=== PATIENT | male | born 1965 | race Two or more races ===

== ENCOUNTER → 2016-12-31 | Outpatient (CLI) | payer OTHER ==
--- NOTE | 2017-01-01 05:15 | HKNOTE ---
DATE OF SERVICE: 12/31/2016 REFERRING PHYSICIAN: Dr. Luis Calhoun MAIN COMPLAINT: Pain, locking, swelling and instability of the right knee. HISTORY OF MAIN COMPLAINT: The patient is a 51-year-old male who states he had no problems with his right knee until about 4 weeks ago when he was gardening. He accidentally stuck his foot into a ho le in the ground as he was walking along. He fell down to the ground twisting his right knee. He w as able to get up and walk, but his knee was very painful. Then his pain settled down after a few d ays and a week or so later, the pain returned in addition to other symptoms, The pain has become pr ogressively worse. He was seen at the [facility] Emergency Room where he was diagnosed as having a fracture of the patella ( ). He was referred to his primary care physician, Dr. Luis lombardi, who referred him to me for further evaluation of his orthopedic problem. PRESENT COMPLAINTS: The pain in the right knee is aggravated by walking, weightbearing and stair cl imbing. He does get rest pain and night pain. He is taking [place] for pain. It does not help very much. He has a long leg knee immobilizer which was given to him. He does not believe that it helps very much. He is not using a walking aid, but he limps all the time. His knee swells, feels unsta ble and it locked on 2 occasions, each time for about 10 minutes. He is limping most of the time. He does not have a shoe lift. He cannot clip his toenails or tie h is shoelaces on the right side. PAST ORTHOPEDIC HISTORY: Previous orthopedic operation none. PRIOR CORTISONE INTAKE: None. ALCOHOL INTAKE: None. OTHER JOINT PROBLEMS: None. BLOOD TEST FOR ARTHRITIS: None. PRIOR INJURIES TO HIPS OR KNEES: None. 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 PAST MEDICAL HISTORY: 1. Hepatitis C. 2. Diabetes. 3. Hypertension. 4. History of TIAs. 5. Asthma. 6. Sleep apnea. 7. Benign prostatic hypertrophy. DRUG ALLERGIES: NONE LISTED. MEDICATIONS 1. Metformin hydrochloride 1000 mg twice a day. 2. Vitamin D3 2000 mg once a day. 3. Hydrochlorothiazide once a day. 4. Omeprazole 40 mg once a day. 5. Fish oil 1000 mg twice a day. 6. Lisinopril 40 mg once a day. 7. KwikPen Humalog once a day. 8. Lantus 3 mL once a day. FAMILY HISTORY: Noncontributory. SYSTEMS REVIEW: HEAD AND NECK: There were any spells, has a history of having a mild stroke. HEART AND LUNGS: Hypertension, stomach intestines, heartburn, diabetes urinary tract, GI tract, ex cess night urination. MUSCLE JOINTS AND NERVES: Gait disturbance and the result of his knee pain. HABITS: The patient does not smoke or drink alcoholic beverages. PHYSICAL EXAMINATION: GENERAL: The patient is an overweight 51-year-old male. He comes in with his 2 sons. VITAL SIGNS: Height 5 feet 6 inches, weight 287 pounds. Blood pressure 115/70, temperature 97.9. EXTREMITIES: The patient has a long leg knee immobilizer on the right leg which is removed for exam ination. He does not have the walking aid with him today. The patient's gait is markedly antalgic. He has difficulty getting on the examination couch. IMAGING: The patient's examination of the right hip with full range of motion without pain. Examin ation of the left hip with full range of motion without pain. No tenderness anywhere around either hip. RIGHT KNEE: Extension lacks 5 degrees (severe pain when the patient jumps off the couch). Flexion 85 degrees. Back is severe pain on attempting any further passive flexion. The medial and lateral collateral ligaments and cruciate ligaments are intact. Carolyne test is negative. There is no effusi on, tenderness, scarring, crepitus, or cysts. The patella tracks normally. There is no tenderness on the articular surface of the patella or in the patellar groove. The Q angle is normal. 2+ effusion . IMAGING: Plain x-rays of the right knee obtained on 11/26/2016 were reviewed. These do not show an y fractures. There are mild degenerative changes at the tibiofemoral joint and the patellofemoral j oint. FOOTNOTE: The radiologist, Dr. Adal Haywood, read this as showing "suggested that there might be a patellar fracture. I see absolutely no patellar fractures on these x-rays. The actual pictures were reviewed. These show severe degenerative osteoarthritis of the patellofemo ral joint. Slight narrowing medial and lateral joint spaces. DIAGNOSES: 1. Probable torn medial meniscus of the right knee. 2. Hepatitis C. 3. Diabetes. 4. Hypertension. 5. History of TIAs. 6. Asthma. 7. Sleep apnea. 8. Benign prostatic hypertrophy. MANAGEMENT: The patient advised that he will need to have an MRI scan of the knee to confirm the di agnosis, although the symptoms that we have and the clinical findings are pretty much confirma tory, nonetheless for medical reasons, we do need to get an MRI scan of the knee. Once it has been obtained, it will be reviewed by me and the patient will be called with the results and advised of w here we go from here, although we did spend considerable time discussing knee problems MRIs. Once w e have an MRI scan, I will call him with the results and will determine where we go from here. Alth ough we did spend considerable time today discussing arthroscopic surgery of the knee. Dictated By: COBY ARELLANO/WILY Conf#: [id number] DID#: [id number] CC: Luis Calhoun MD;*EndCC*
== END | disposition home or self-care (01) ==
LOC: HKI 14:44
DX: M25.561 Pain in right knee (principal); E11.9 Type 2 diabetes mellitus without complications; I10 Essential (primary) hypertension; J45.909 Unspecified asthma, uncomplicated; B19.20 Unspecified viral hepatitis C without hepatic coma
CPT/HCPCS: G0463

== ENCOUNTER → 2017-02-11 | Outpatient (CLI) | payer OTHER ==
[~2017-02-11] MED LIST: BLOO-53 MC; CHOL100062 PO; GEMF600T PO; GLUCOSE; HYD25 PO; INSU100C SQ; LANC-831 MC; LANT3I SC; LISI40TA9 PO; METF1000 PO; NOVO7030 SC; OMEG300C3 PO; OMEP40CA6 PO; test
--- NOTE | 2017-02-11 21:50 | HKNOTE ---
DATE OF SERVICE: 02/11/2017 The patient comes for preoperative evaluation. He is scheduled to have operative arthroscopy on his right knee on 02/12/2017. He has been cleared for surgery by Dr. Armond Santoro. The patient dawson s diabetes. Note that he very recently weighed 400 pounds. He has been able to diet himself down t o 273 pounds, which is remarkable. The patient plays singles and doubles tennis. We again went over the MRI and ____ plan. The patien t is advised that he has some arthritis in the knee and he will not be relieved of all pain in the k nee. Postoperative course and recovery were discussed with him. Dictated By: COBY ARELLANO/WILY Conf#: [id number] DID#: [id number]
== END | disposition home or self-care (01) ==
LOC: HKI 13:28
DX: Z01.818 Encounter for other preprocedural examination (principal); M25.561 Pain in right knee
CPT/HCPCS: G0463

== ENCOUNTER 2017-02-12 05:16 | Observation (INO) | payer OTHER ==
[2017-02-12] VITALS (43 sets, daily range): BP systolic 112–157; BP diastolic 56–95; PULSE 72–112; RESP 10–25; Ht 167.6 cm; Wt 123.8 kg
[~2017-02-12] VITALS: Ht 167.6 cm; Wt 123.8 kg
[2017-02-12] MEDS ORDERED: ACETAMINOPHEN 1000MG/100ML IV 100 ML IVPB ONE (06:00)
[2017-02-12] MEDS ORDERED: LACTATED RINGER'S 1,000 ML IV* SCH (06:00)
[2017-02-12] MEDS ORDERED: DEXAMETHASONE 4 MG/ML 1 ML INJ IV ONE (06:00)
[2017-02-12] MEDS ORDERED: oxyCODONE (CR) 10 MG TAB [oxyCONTIN] PO ONE (06:00)
[2017-02-12] MEDS ORDERED: VANCOMYCIN 1 GM (PMX) 250 ML IVPB ONE (06:00)
[2017-02-12] MEDS ORDERED: CELECOXIB 200 MG CAP PO ONE (06:00)
[2017-02-12] MEDS ORDERED: LANSOPRAZOLE 30 MG CAP PO ONE (06:00)
[2017-02-12] MEDS ORDERED: ONDANSETRON 4 MG INJ IV ONE (06:00)
[2017-02-12] MEDS ORDERED: ROCURONIUM 50 MG INJ ONE (06:29)
[2017-02-12] MEDS ORDERED: DEXAMETHASONE 4 MG/ML 1 ML INJ ONE (06:29)
[2017-02-12] MEDS ORDERED: NEOSTIGMINE 3 MG/3 ML SYRINGE ONE (06:29)
[2017-02-12] MEDS ORDERED: GLYCOPYRROLATE 0.4 MG INJ ONE (06:29)
[2017-02-12] MEDS ORDERED: PROPOFOL 20 ML ONE (06:29)
[2017-02-12] MEDS ORDERED: ONDANSETRON 4 MG INJ ONE (06:29)
[2017-02-12] MEDS ORDERED: LIDOCAINE 2% (SDV) 5 ML INJ ONE (06:29)
[2017-02-12] MEDS ORDERED: MIDAZOLAM 1 MG/ML 2 ML INJ ONE (06:29)
[2017-02-12] MEDS ORDERED: FENTAnyl 50 MCG/ML VIAL ONE (06:29)
[2017-02-12] MEDS ORDERED: MIDAZOLAM 1 MG/ML 2 ML INJ IV PRN ×2 (06:30)
[2017-02-12] MEDS ORDERED: OXYCODONE/ACETAMINOPHEN (5/325) TAB PO PRN ×4 (06:30)
[2017-02-12] MEDS ORDERED: ATROPINE 1 MG/10 ML SYRINGE IV PRN ×2 (06:30)
[2017-02-12] MEDS ORDERED: MEPERIDINE 25 MG INJ IV PRN ×2 (06:30)
[2017-02-12] MEDS ORDERED: DIPHENHYDRAMINE 50 MG INJ IV PRN ×2 (06:30)
[2017-02-12] MEDS ORDERED: morphine (1 MG/ML) 10ML SYRINGE IV PRN ×6 (06:30)
[2017-02-12] MEDS ORDERED: HYDROmorphONE (0.2 MG/ML) 10ML SYG IV PRN ×6 (06:30)
[2017-02-12] MEDS ORDERED: SUCCINYLCHOLINE CHLORIDE 100 MG/5 ML SYG IV ONE (06:30)
[2017-02-12] MEDS ORDERED: hydrALAzine 20 MG INJ IV PRN ×2 (06:30)
[2017-02-12] MEDS ORDERED: EPHEDrine SULFATE 50 MG/5 ML SYG IV PRN ×2 (06:30)
[2017-02-12] MEDS ORDERED: ONDANSETRON 4 MG INJ IV PRN ×3 (06:30→09:00)
[2017-02-12] MEDS ORDERED: LABETALOL HCL 20MG INJ IV PRN ×2 (06:30)
[2017-02-12] MEDS ORDERED: FENTAnyl 50 MCG/ML VIAL IV PRN ×4 (06:30)
[2017-02-12] MEDS ORDERED: ROPIVACAINE 0.5 % 30 ML VIAL ONE (06:54)
[2017-02-12] MEDS ORDERED: BUPIVACAINE 0.25%/EPI (SDV) 30 ML INJ ONE (06:54)
[2017-02-12] MEDS ORDERED: KETOROLAC 30 MG INJ ONE (06:55)
[2017-02-12] MEDS ORDERED: morphine SULFATE/PF (10 MG/10 ML) INJ ONE (06:55)
--- NOTE | 2017-02-12 07:20 | HPN ---
Date/Time of Note Date/Time of Note DATE: 02/12/17 TIME: 07:19 Interval H&P Admission Note Pt. seen H&P reviewed: No system changes JULIET AMOS PA-C Feb 12, 2017 07:20
[2017-02-12] MEDS ORDERED: LISI40TA9 PO ×2 (07:26→14:27)
[2017-02-12] MEDS ORDERED: METF1000 PO ×2 (07:26→14:27)
[2017-02-12] MEDS ORDERED: HYD25 PO ×2 (07:26→14:27)
[2017-02-12] MEDS ORDERED: GEMF600T PO ×2 (07:26→14:27)
[2017-02-12] MEDS ORDERED: LANT3I SC ×2 (07:26→14:27)
[2017-02-12] MEDS ORDERED: OMEG300C3 PO ×2 (07:26→14:27)
[2017-02-12] MEDS ORDERED: CHOL100062 PO ×2 (07:26→14:27)
[2017-02-12] MEDS ORDERED: NOVO7030 SC ×2 (07:26→14:27)
[2017-02-12] MEDS ORDERED: OMEP40CA6 PO ×2 (07:26→14:27)
--- NOTE | 2017-02-12 07:39 | PREOPHP ---
DATE OF ADMISSION: 02/12/2017 He has a metabolic syndrome, diabetes, hypertension, and morbid obesity. The patient will have an a rthroscopy of the right knee. The patient has an exam, awake, 274 pounds and BMI 47.54. Blood pres sure 150/90, temperature is 97.6, the pulse around 90, respirations 22. THE PATIENT HAD NO ALLERGY and he has a metabolic syndrome, diabetic and high blood pressure. PHYSICAL EXAMINATION: GENERAL: Reveals a very obese gentleman, awake, in no distress on the day of examination and he weighs about 274 pounds. Looks well nourished and very . HEENT: Head: headache, but the patient complained of headache and the examination of t he scalp, no lesion. Eyes: PERRL. Conjunctivae okay, normal. Sclerae are clear. The vision ____ _ and grossly normal. Ears: Ear canals are clear. Tympanic membranes are normal. Hearing is heather sly are normal. Nose: clear. Mucosa is pink, no lesion. Teeth grossly normal and some cavi ty. NECK: Supple, no mass. Thyroid gland not enlarged. Carotid bruits 2+, equal, symmetrical. HEART: No organic murmur heard on exam. EKG is normal. BREASTS: No mass, no discharge. LUNGS: Clear to auscultation and percussion bilaterally. ABDOMEN: Obese but soft. Some organomegaly, but mild. The liver, spleen palpable. GENITALIA: Grossly normal. He has no circumcision. Testicles are . Prostate is grossl y normal. RECTAL: Normal, no hemorrhoid, normal bilaterally. EXTREMITIES: Show some severe osteoarthritis and go for right knee arthroscopy for severe ost eoarthritis. LYMPHATIC: Lymph nodes are not enlarged. BACK: He has some low back pain. SKIN: Tattoo on the upper extremities, but is clear, no gross skin lesion. NEUROLOGIC: Findings normal. The patient is alert. No gross sensory or motor deficit. REVIEW OF SYSTEMS: HEENT: Normocephalic. CHEST: Lungs clear. HEART: . There is no murmur. ABDOMEN: , but no mass . EXTREMITIES: He has a longstanding osteoarthritis of both legs. He has metabolic syndrome, including high blood pressure, morbid obesity, and diabetes mellitus. BLOOD TESTS: Platelets a little high, 405. He is on aspirin anticoagulant, mg. White count 8.0, RBC 4.89, hemoglobin normal about , hematocrit 38.9. On the normal. metaboli c syndrome metabolic panel, the random glucose 262, BUN 21, creatinine 1.6, GFR normal about 8 1. The liver, ALT/AST again normal, 22 and 21. Bilirubin total 0.6 and serum calcium 10.7, albumin 4.4, globulin total 3.6, normal. Urinalysis: The color linda, appearance clear, no protein, glucose trace , occult blood trace, bilirubin negative, urobilinogen , white count 0.5, R BC no, no , crystal not seen, bacteria very few. PT is 10 and PTT ; INR equal 1, normal. MEDICATIONS: 1. because of severe osteoarthritis of the knee, he is put on [place] 10/325 mg b.i.d. 2. Lantus injection 40 units every afternoon. 3. He takes also ibuprofen 800 mg p.o. q.6 hours. 4. He has some . 5. Some omeprazole 40 mg b.i.d. 6. Gabapentin 600 mg b.i.d. 7. He is on Humulin R 10 units subQ b.i.d. 8. Novolin N 20 units every morning. 9. He is on lisinopril 40 mg p.o. daily. 10. He is on the metformin 1000 mg b.i.d. 11. He is also on glimepiride 4 mg b.i.d. daily. 12. Hydrochlorothiazide 25 mg 1 tablet p.o. every morning. the patient is to undergo a right knee arthroscopy for his severe osteoarthritis of the right knee, and the patient has a metabolic syndrome, and the medication has been dictated and the physica l examination was done. Dr. Luis Calhoun MD dictating Pre-Operative History and Physical for Dr. Lonny Oden MD Dictated By: LONNY ARELLANO/WILY Conf#: [id number] DID#: [id number] CC: Luis Calhoun;*EndCC*
[2017-02-12] MEDS ORDERED: BUPIVACAINE 0.25%/EPI (SDV) 30 ML INJ INJ ONE (08:17)
[2017-02-12] MEDS ORDERED: morphine SULFATE/PF (10 MG/10 ML) INJ INJ ONE (08:18)
[2017-02-12] MEDS ORDERED: ROPIVACAINE 0.5 % 30 ML VIAL INJ ONE (08:18)
[2017-02-12] MEDS ORDERED: KETOROLAC 30 MG INJ INJ ONE (08:18)
[2017-02-12] MEDS ORDERED: HYDROCODONE/APAP (5/325) TAB PO PRN ×2 (09:00→18:30)
[2017-02-12] MEDS ORDERED: morphine 10 MG INJ IV PRN (09:00)
[2017-02-12] MEDS ORDERED: ACETAMINOPHEN 1000MG/100ML IV 100 ML IVPB SCH (09:00)
[2017-02-12] MEDS ORDERED: HYDROCODONE/APAP (10/325) TAB PO PRN (09:00)
[2017-02-12] MEDS ORDERED: INSULIN ASPART [NOVOLOG] 3 ML PEN SC ONE ×3 (10:00→14:30)
[2017-02-12] MEDS ORDERED: ALBUTEROL 0.5% (NEB) 2.5 MG/0.5 ML AMP ONE (10:56)
[2017-02-12] MEDS ORDERED: ALBUTEROL 0.083% (NEB) 2.5 MG/3 ML AMP HHN ONE (11:00)
--- NOTE | 2017-02-12 11:26 | OPR ---
DATE OF OPERATION: 12/31/2016 SURGEON: Lonny Oden MD INTERNATIONAL ACCOUNTANT: ALESIA Gonsalez ANESTHESIOLOGIST: Dr. Aponte PREOPERATIVE DIAGNOSIS: Torn medial meniscus of the right knee. POSTOPERATIVE DIAGNOSES: 1. Compound tears of the medial meniscus of the right knee. 2. Degenerative osteoarthritis of the right knee. 3. Degenerative tears of the lateral meniscus. PROCEDURES: 1. Diagnostic arthroscopy. 2. Partial medial meniscectomy. 3. Partial lateral meniscectomy. FINDINGS AT SURGERY: The patellofemoral joint showed grade I degenerative changes. The medial comp artment both on the femoral and tibial sides showed grade III degenerative changes. The lateral com partment on the tibial side, showed grade II degenerative changes. The medial meniscus had compound tears of the posterior 50% of the meniscus. The lateral meniscus showed degenerative fraying of th e medial edge with small radial tears. DESCRIPTION OF PROCEDURE: Under general anesthetic, the right leg was prepared and draped in the [facility] fashion. A tourniquet was not used throughout the procedure. The standard inferomedial and inferolateral portals were used. The knee was systematically inspecte d and the above findings were noted. Using a variety of basket forceps and the motorized intraarticular shaver, a partial medial meniscec alisia was performed. Remaining meniscus was balanced and stable. Using a cane diathermic type devic e known as Werewolf ____ the remaining meniscus was smoothed over and small stray bits of the medial meniscus were removed. Bleeding points were also coagulated with this device. The same device wa s used to perform a chondroplasty type procedure on the medial femoral condyle where there was quite a considerable amount of unstable articular cartilage. The camera was now moved into the lateral compartment noted on the way that the cruciate ligaments w ere intact. At first glance, the lateral compartment appeared to be completely normal until the tib ial plateau was inspected carefully and was found to have quite marked softening of the articular ca rtilage and areas where the cartilage was denuded from the tibial plateau. A partial lateral menisc ectomy was now performed. The remaining meniscus was balanced and stable. At the end of procedure, the knee was copiously irrigated to remove all contained fragments. The wounds were closed using i nterrupted nylon. The usual sterile dressings and a compression dressing were applied. There were no complications at all. He returned to recovery room in stable condition. FOOTNOTE: This patient is a very active 52-year-old male. He very recently weighed 400 pounds and now he has lost 180 pounds. He is determined to lose even more weight. [place] will need to unde rgo a knee replacement operation sooner or later. I do not believe that a unicompartmental operatio n on the medial compartment would suffice. Because of the extensive changes in the lateral tibial p lateau, he most certainly will need to have a full knee replacement. In my estimation it could be a nything from 2 to 4 years before he needs to have the surgery, possibly 6 years, but highly unlikely to go more than that. Dictated By: LONNY ARELLANO/WILY Conf#: [id number] DID#: [id number]
[2017-02-12] MEDS ORDERED: ALBUTEROL 0.083% (NEB) 2.5 MG/3 ML AMP ONE (12:04)
[2017-02-12] MEDS ORDERED: NPH, HUMAN INSULIN ISOPHANE 3ML VIAL SC ONE (14:00)
--- NOTE | 2017-02-12 14:18 | CONS ---
Date/Time of Note Date/Time of Note DATE: 02/12/17 TIME: 14:11 Assessment/Plan Assessment/Plan Additional Assessment/Plan 52 yo M with pmhx insulin dependent DM2 here for outpatient knee procedure noted to be hyperglycemic post procedure in setting of 1 week without insulin. PLAN 10 units of lantus now recheck BS in 2 hours. If below <300, will discharge. If above 300, provide additional aspart then recheck then discharge Consultation Date/Type/Reason Admit Date/Time Type of Consultation: Hospitalist Reason for Consultation hyperglycemia Referring Provider: COBY SAENZ MD Hx of Present Illness 52 yo M with pmhx insulin dependent type 2 DM, GERD, HTN, HL presented today for an elective outpatient knee procedure. Pt noted to be hyperglycemic to the 300s post procedure, which was the impetus for this consult. Of note, pt has been out of his medications including insulin for the past week as they were "confiscated" at an outside hospital. Pt states he will not be able to get any of his home meds filled until he sees his PCP in 5 days. Pt denies any somatic complaints. 10pROS neg except as per HPI Past Medical History DM2, HTN, vit D def, HL Past Surgical History knee procedure today Social History lives in the community Smoking Status: Former smoker Exam/Review of Systems Vital Signs Vitals Vital Signs Date Time Temp Pulse Resp B/P Pulse Ox O2 Delivery O2 Flow Rate FiO2 02/12/17 11:58 102 22 149/77 92 Room Air 02/12/17 11:02 3.0 32 02/12/17 09:31 98.2 Exam anxious large neck MMM EOMI resp nonlabored no gross abd distension no rashes no le edema moves exts freely Results Results 24 hrs Laboratory Tests Test 02/12/17 06:25 02/12/17 09:29 02/12/17 10:29 02/12/17 11:31 Bedside Glucose 256 H 306 H 362 H 341 H Test 02/12/17 12:33 Bedside Glucose 363 H Medications Medications Current Medications Acetaminophen/ Hydrocodone Bitart ([place] (10/325)) 2 tab Q4H PRN PO PAIN LEVEL 4-7; Start 02/12/17 at 09:00 Morphine Sulfate (morphine) 5 mg Q4H PRN IV PAIN 8-10; Start 02/12/17 at 09:00 Acetaminophen/ Hydrocodone Bitart ([place] (5/325)) 1 tab Q4H PRN PO PAIN LEVEL 1 -3; Start 02/12/17 at 09:00 Ondansetron HCl (Zofran Inj) 4 mg Q4H PRN IV NAUSEA AND/OR VOMITING; Start at 09:00 Insulin Aspart (Novolog Insulin Pen) 10 unit ONCE ONCE SC ; Start 02/12/17 at 14:30; Stop 02/12/17 at 14:31 SANDY ELI MD Feb 12, 2017 14:18
[2017-02-12] MEDS ORDERED: SOD CHLORIDE 0.9% 1,000 ML IV ONE (14:30)
[2017-02-12] MEDS ORDERED: INSU100C SQ (14:35)
[2017-02-12 15:29] LABS: CREATININE 1.25 mg/dl (0.61-1.24)
[2017-02-12 15:30] LABS: CALCIUM 9.2 mg/dl (8.4-10.2)
[2017-02-12 15:33] LABS: POTASSIUM 5.7 mmol/L (3.5-5.1)
--- NOTE | 2017-02-12 17:09 | RADRPT ---
Vent Rate: 92 bpm RR Interval: 0 msec LA Interval: 166 msec QRS Duration: 78 msec QT Interval: 344 msec QTC Interval: 425 msec P-R-T [place]: 63 - 55 - 48 degrees Normal sinus rhythm Normal ECG Electronically Signed By: Deep Goldberg [id number]
--- NOTE | 2017-02-12 18:18 | HP ---
Date/Time of Note Date/Time of Note DATE: 02/12/17 TIME: 18:18 Assessment/Plan VTE Prophylaxis VTE Prophylaxis Intervention: SCD's Lines/Catheters IV Catheter Type (from Nrsg): Peripheral IV Assessment/Plan Assessment/Plan 52 yo M with pmhx insulin dependent DM2 here for outpatient knee procedure noted to be hyperglycemic post procedure in setting of 1 week without insulin. Now found to also have FELI and be hyperkalemic. Suspect 2/2 iatrogenic medication nonadherence PLAN hydration-->push PO resume home insulin hold dieretics recheck labs in AM expect labs will be improved and pt can be discharged at that time HPI/ROS Admit Date/Time Admit Date/Time Hx of Present Illness 52 yo M with pmhx insulin dependent type 2 DM, GERD, HTN, HL presented today for an elective outpatient knee procedure. Pt noted to be hyperglycemic to the 300s post procedure, which was the impetus for this consult. Of note, pt has been out of his medications including insulin for the past week as they were "confiscated" at an outside hospital. Pt states he will not be able to get any of his home meds filled until he sees his PCP in 5 days. Pt denies any somatic complaints. 10pROS neg except as per HPI PMH/Family/Social Past Medical History as per HPI Soc Hx lives in the community Social History Smoking Status: Former smoker Exam/Review of Systems Vital Signs Vitals Vital Signs Date Time Temp Pulse Resp B/P Pulse Ox O2 Delivery O2 Flow Rate FiO2 02/12/17 16:49 89 18 112/74 98 Nasal Cannula 02/12/17 11:02 3.0 32 02/12/17 09:31 98.2 Exam Exam obese, anxious MMM EOMI no mrg lungs clear abd soft no le edema responds to questions appropriately Labs Result Diagram: 02/12/17 5097 Medications Medications Current Medications Acetaminophen/ Hydrocodone Bitart ([place] (10/325)) 2 tab Q4H PRN PO PAIN LEVEL 4-7; Start 02/12/17 at 09:00 Morphine Sulfate (morphine) 5 mg Q4H PRN IV PAIN 8-10; Start 02/12/17 at 09:00 Acetaminophen/ Hydrocodone Bitart ([place] (5/325)) 1 tab Q4H PRN PO PAIN LEVEL 1 -3; Start 02/12/17 at 09:00 Ondansetron HCl (Zofran Inj) 4 mg Q4H PRN IV NAUSEA AND/OR VOMITING; Start at 09:00 Procedures Procedures EKG with NSR SANDY ELI MD Feb 12, 2017 18:18
[2017-02-12] MEDS ORDERED: ACETAMINOPHEN 325 MG TAB PO PRN (18:30)
[2017-02-12] MEDS ORDERED: NACL 0.9% 3 ML SYG IV SCH (18:30)
[2017-02-12] MEDS: SOD CHLORIDE 0.9% 1,000 ML IV SCH (19:00)
[2017-02-12] MEDS ORDERED: GLUCOSE GEL 15 GRAM TUBE PO PRN ×2 (19:30)
[2017-02-12] MEDS ORDERED: DEXTROSE 50% 50 ML SYRINGE IV PRN ×2 (19:30)
[2017-02-12] MEDS ORDERED: GLUCAGON 1 MG INJ IM PRN (19:30)
[2017-02-12] MEDS ORDERED: GLUCOSE GEL 15 GRAM TUBE BUCCAL PRN (19:30)
[2017-02-12] MEDS ORDERED: HYDROCODONE/APAP (10/325) TAB PO ONE (21:00)
[2017-02-12] MEDS: GEMFIBROZIL 600 MG TAB PO SCH (21:02)
[2017-02-12] MEDS: INSULIN ASPART [NOVOLOG] 3 ML PEN SC SCH (21:10)
[2017-02-13] VITALS: BP 129/62; RESP 15
[2017-02-13 00:06] VITALS: PULSE 80
[2017-02-13] MEDS ORDERED: ACCU-CHEK XX SCH (02:00)
[2017-02-13] MEDS: SOD CHLORIDE 0.9% 1,000 ML IV SCH (03:00)
[2017-02-13 04:01] VITALS: BP 116/57; PULSE 95; RESP 15
[2017-02-13] MEDS ORDERED: PANTOPRAZOLE (EC) 40 MG TAB PO SCH (06:00)
[2017-02-13 07:44] LABS: CALCIUM 8.9 mg/dl (8.4-10.2); CREATININE 1.04 mg/dl (0.61-1.24)
[2017-02-13] MEDS ORDERED: INSULIN ASPART [NOVOLOG] 3 ML PEN SC SCH (07:55)
[2017-02-13 08:08] VITALS: BP 108/59; RESP 18
--- NOTE | 2017-02-13 08:12 | PN ---
Date/Time of Note Date/Time of Note DATE: 02/13/17 TIME: 08:06 Assessment/Plan VTE Prophylaxis VTE Prophylaxis Intervention: ambulation, anti-embolic stocking Lines/Catheters IV Catheter Type (from Nrsg): Peripheral IV Assessment/Plan Assessment/Plan * Continued monitoring by hospitalist. * Lengthy discussion with patient had today regarding not disclosing taking DM meds for a week prior to surgery. He states that he "really wanted" the surgery so he did not disclose this information but it was explained the potential risks with performing procedures with unstable glucose. He is aware and understands. * Dressing change discussed with patient today. * Will defer to hospitalist in regards to discharge when blood sugars are under control. Potassium is WNL on labs today. * Cleared from an orthopedic standpoint to return home. He may be discharged with 6in dami wrap and gauze with instructions to apply tomorrow. He may removed SUMANTH hose and dressing from surgery tomorrow and replace. May clean region with alcohol swabs. No showering to that region until post-op appointment next week ( 02/17/17) Subjective 24 Hr Interval Summary 52-year-old male postop day 1 status post right knee arthroscopy with partial medial and lateral meniscectomy. Patient scheduled for same-day surgery yesterday but after the surgery patient sugars williams to 341. Patient does have documented history of type 2 diabetes. Patient is currently on insulin and metformin. Was notified by PACU nurse yesterday that sugars are elevated. Patient had elevated glucose yesterday but PACU nurse states that patient was cleared to proceed by anesthesiologist with procedure.Consult with Hospitalist was arranged and patient ended up being admitted. While discussing with patient today, he states that it was communicated his medication regimen for diabetes but he did not disclose that he has not been taking his insulin and metformin for 5-6 days prior to surgery. Patient states that the week before he went to the emergency room for separate medical issue and had his insulin and metformin "confiscated." Patient states that he try to get his medications back and they would not be given back to him. He also confirms that he spoke to his primary care provider who provided patient with a refill but pharmacy states that it was too early for him to refill. Patient ended up being admitted for monitoring to lower glucose as well as abnormal potassium levels. Sugars have decreased to 240. In regards to the right knee patient denies any pain complaints. He does state that he has not really been weightbearing but has been doing well to the right knee. Exam/Review of Systems Vital Signs Vitals Vital Signs Date Time Temp Pulse Resp B/P Pulse Ox O2 Delivery O2 Flow Rate FiO2 02/13/17 08:08 98.1 73 18 108/59 93 02/12/17 20:00 Nasal Cannula 2.0 02/12/17 11:02 32 Intake and Output 02/12/17 02/12/17 02/13/17 15:00 23:00 07:00 Intake Total 800 ml 720 ml Output Total 30 ml 625 ml Balance 770 ml 95 ml Exam Free Text/Dictation * Dressing applied to the right knee. * No complications. * Limited range of motion status post surgery. Patient denies any calf pain. Neg Deisi's sign. Toes freely movable. Mild swelling to the feet. Constitutional: alert, oriented, well developed Results Result Diagram: 02/13/17 0616 JULIET AMOS PA-C Feb 13, 2017 08:12
[2017-02-13] MEDS: GEMFIBROZIL 600 MG TAB PO SCH (08:42)
[2017-02-13 08:48] VITALS: PULSE 72
[2017-02-13] MEDS: INSULIN ASPART [NOVOLOG] 3 ML PEN SC SCH (08:48)
[2017-02-13] MEDS ORDERED: LANC-831 MC (08:53)
--- NOTE | 2017-02-13 08:53 | DS ---
Date/Time of Note Date/Time of Note DATE: 02/13/17 TIME: 08:48 Discharge Summary Admission/Discharge Info Admit Date/Time Feb 12, 2017 at 15:43 Discharge Date/Time Final Diagnosis hyperglycemia Patient Condition: Good Consults none Hx of Present Illness 52 yo M with pmhx insulin dependent type 2 DM, GERD, HTN, HL presented today for an elective outpatient knee procedure. Pt noted to be hyperglycemic to the 300s post procedure, which was the impetus for this consult. Of note, pt has been out of his medications including insulin for the past week as they were "confiscated" at an outside hospital. Pt states he will not be able to get any of his home meds filled until he sees his PCP in 5 days. Pt denies any somatic complaints. 10pROS neg except as per HPI Hospital Course Pt resumed on home lantus, started on TID aspart as well. PO fluids pushed. Home BP meds held. By the next AM, K and Cr were back to nl and glucose improved significantly. Pt rx'ed new glucometer, advised to check BGs TID and f/u with PCP as scheduled next week As BPs ok off BP meds, advised to f/u with PCP knee wound care and f/u as per ortho Home Meds Active Scripts [glucose] No Conflict Check Prov:SANDY ELI MD 02/13/17 Blood-Glucose Meter (Blood Glucose Monitor) 1 Each Each, 1 EACH MC, #1 Prov:SANDY ELI MD 02/13/17 [test] No Conflict Check Prov:SANDY ELI MD 02/13/17 Lancets (Blood Lancets) 1 Each Each, 1 EACH MC QID, #100 Prov:SANDY ELI MD 02/13/17 Insulin Lispro (Humalog) 100 Unit/1 Ml Cartridge, 10 UNIT SQ TID for 5 Days, #1 Prov:SANDY ELI MD 02/12/17 Insulin Glargine* (Lantus*) 100 Unit/Ml Soln, 30 UNIT SC DAILY for 5 Days, #1 VIAL Prov:SANDY ELI MD 02/12/17 Gemfibrozil* (Lopid*) 600 Mg Tablet, 600 MG PO BID for 5 Days, #10 TAB Prov:SANDY ELI MD 02/12/17 [place]-3 Fatty Acids (Fish Oil) 300 Mg Capsule, 300 MG PO DAILY for 5 Days, #5 CAP Prov:SANDY ELI MD 02/12/17 Omeprazole* (Omeprazole*) 40 Mg Capsule.dr, 40 MG PO DAILY for 5 Days, #5 CAP Prov:SANDY ELI MD 02/12/17 Cholecalciferol* (Vitamin D3*) 1,000 Unit Tablet, 2000 UNIT PO DAILY for 5 Days , #5 TAB Prov:SANDY ELI MD 02/12/17 Metformin Hcl* (Metformin Hcl*) 1,000 Mg Tablet, 1000 MG PO BID for 5 Days, #10 TAB Prov:SANDY ELI MD 02/12/17 Discontinued Scripts Lisinopril* (Lisinopril*) 40 Mg Tablet, 40 MG PO DAILY for 5 Days, #5 TAB Prov:SANDY ELI MD 02/12/17 Hydrochlorothiazide* (Hydrochlorothiazide*) 25 Mg Tab, 25 MG PO DAILY for 5 Days , #5 TAB Prov:SANDY ELI MD 02/12/17 Insulin Isophan/Regular (Humulin 70/30) 100 Units/Ml Susp, 20 UNIT SC HS for 5 Days, #1 EA Prov:SANDY ELI MD 02/12/17 Primary Care Provider Not On Staff Doctor Pending Labs Laboratory Tests Test 02/12/17 09:29 02/12/17 10:29 02/12/17 11:31 02/12/17 12:33 Bedside Glucose 306mg/dL (70-220) 362mg/dL (70-220) 341mg/dL (70-220) 363mg/dL (70-220) Test 02/12/17 14:55 02/12/17 15:15 02/12/17 20:54 02/13/17 02:24 Sodium Level 136mmol/L (135-144) Potassium Level 5.7mmol/L (3.5-5.1) Chloride Level 102mmol/L (97-110) Carbon Dioxide Level 23mmol/L (21-31) Anion Gap 17 (8-16) Blood Urea Nitrogen 20mg/dl (7-20) Creatinine 1.25mg/dl (0.61-1.24) Glucose Level 376mg/dl (70-220) Calcium Level 9.2mg/dl (8.4-10.2) Bedside Glucose 362mg/dL (70-220) 254mg/dL (70-220) 220mg/dL (70-220) Test 02/13/17 06:16 02/13/17 06:38 02/13/17 08:18 Sodium Level 139mmol/L (135-144) Potassium Level 5.0mmol/L (3.5-5.1) Chloride Level 105mmol/L (97-110) Carbon Dioxide Level 25mmol/L (21-31) Anion Gap 14 (8-16) Blood Urea Nitrogen 23mg/dl (7-20) Creatinine 1.04mg/dl (0.61-1.24) Glucose Level 231mg/dl (70-220) Calcium Level 8.9mg/dl (8.4-10.2) Lab Scanned Report REFERENCE [id number] Bedside Glucose 256mg/dL (70-220) SANDY ELI MD Feb 13, 2017 08:53
[2017-02-13] MEDS ORDERED: test (08:54)
[2017-02-13] MEDS ORDERED: BLOO-53 MC (08:54)
[2017-02-13] MEDS ORDERED: GLUCOSE (08:56)
--- NOTE | 2017-02-13 08:59 | PDOCDIS ---
Discharge Instructions DIAGNOSIS Discharge Diagnosis: hyperglycemia CONDITION Patient Condition: Good HOME CARE INSTRUCTIONS: Special Diet: clears advance to regular ACTIVITY: Bathing Restrictions: as advised by orthopedic surgery FOLLOW UP/APPOINTMENTS Appointments follow up with orthopedics and wound care as per orthopedics keep your appointment with your regular doctor for next week check your blood sugar 3 times daily and bring the results to your regular doctor SANDY ELI MD Feb 13, 2017 08:59
[2017-02-13] MEDS ORDERED: CHOLECALCIFEROL 1,000 UNIT TAB PO SCH (09:00)
[2017-02-13] MEDS ORDERED: ENOXAPARIN 40 MG/0.4 ML SYG SC SCH (09:00)
[2017-02-13] MEDS ORDERED: INSULIN GLARGINE [LANtus] 3 ML PEN SC SCH (09:00)
[2017-02-13] MEDS ORDERED: ASPIRIN 81 MG TAB PO SCH (09:00)
[2017-02-14] MEDS ORDERED: INSULIN GLARGINE [LANtus] 3 ML PEN SC SCH (08:00)
== END 2017-02-13 11:15 | disposition home or self-care (01) ==
LOC: SDS 05:16 → REC 15:43 → SDS 15:43 → TEL 18:50
PROVIDERS: ATTEND Internal Medicine
DX: M23.203 Derangement of unspecified medial meniscus due to old tear or injury, right knee (principal); M23.200 Derangement of unspecified lateral meniscus due to old tear or injury, right knee; M17.11 Unilateral primary osteoarthritis, right knee; E11.65 Type 2 diabetes mellitus with hyperglycemia; Z79.4 Long term (current) use of insulin; I10 Essential (primary) hypertension; E66.01 Morbid (severe) obesity due to excess calories; Z68.41 Body mass index [BMI] 40.0-44.9, adult; J45.909 Unspecified asthma, uncomplicated; G47.30 Sleep apnea, unspecified; K21.9 Gastro-esophageal reflux disease without esophagitis; E78.5 Hyperlipidemia, unspecified
CPT/HCPCS: 29880; 80048; 82962; 83036; 93005; 94640; 96372; J0131; J1100; J1650; J1815; J1885; J2250; J2274; J2405; J2710; J2795; J3010; J3370; J7030; J7120; J7999; Z7500; Z7512; Z7610; G0378

== ENCOUNTER → 2017-02-19 | Outpatient (CLI) | payer OTHER ==
[~2017-02-19] MED LIST changes: -HYD25 PO; -LISI40TA9 PO; -NOVO7030 SC
--- NOTE | 2017-02-19 15:41 | PN ---
Date/Time of Note Date/Time of Note DATE: 02/19/17 TIME: 15:35 Outpatient Progress Note Chief Complaint Postop follow-up status post right knee arthroscopy on 02/12/2017 HPI 52-year-old male presents today for postoperative visit status post right knee arthroscopy with partial medial and lateral meniscectomy performed on 2016. Patient had issue while in the hospital as he did not disclose that he has not been taking his insulin and metformin for his type 2 diabetes for 1 week prior. Patient was observed overnight after surgery and after sugars lowered and his potassium level was stable, he was discharged home. Denies any complications in regards to diabetes since discharge. States that he has been compliant with his diabetic medication. Originally scheduled to be seen earlier this week but patient canceled appointment. Patient also called in to office and had complaints of chest tightness that he felt was due to the increased heat outside which was flaring up his asthma. It was recommended that given his history of uncontrolled diabetes and recent complications with complaints of chest tightness to present to emergency room. Patient states that he did not present to emergency room and uses albuterol inhaler. He did state however, that his symptoms did improve. Denies any chest tightness or pain at this time. Denies any radiating pain from the chest. Denies any calf pain status post surgery. Patient does have numbness to the right lower extremity that he feels presented after surgery. Denies any pain to the right knee. Review of Systems Const: No Fever, no chills, no Fatigue, normal appetite, no diaphoresis. Resp: No SOB, no wheezing, no chest pain. CV: No chest pain, no palpitaions, no OTTO. Physical Exam Blood pressure is 137/80, temperature is 98.4, pulse is 89, respiratory rate is 12, height is 5 foot 6 inches, weight is 273 pounds General Appearance: well-developed, well-nourished, in no acute distress. Right knee: Surgical wound is clean dry and intact. Sutures are intact. No tenderness to palpation to the right knee. Patient is able to achieve full extension on exam today with flexion at about 100. Normal sensory examination to light touch today. Negative Homans sign. No calf pain. Allergies Coded Allergies: No Known Allergy (Verified , 02/12/17) Assessment/Plan * Arthroscopic images discussed today and copy was provided for patient. All questions were answered. * Outpatient physical therapy prescription provided today. * Suture removal with application of Steri-Strips applied * Lengthy discussion regarding patient's complaints of right lower extremity numbness. After discussion of history patient states that he has had past episodes of radiating symptoms down the right leg down to the feet as well as cramping to the right hand. He states that symptoms began after he suffered stroke in the past with right-sided symptoms. Patient has been on gabapentin in the past but felt that gabapentin was creating cramping. Patient was offered neuropathic pain medication such as Lyrica today but he respectfully declines. It was explained that surgery may have flared up radiating symptoms to the right lower extremity especially due to previous significant history of CVA with right-sided neurological deficits. Patient also has speech impediment status post stroke. Advised to continue with primary care practitioner for ongoing monitoring as he would also like referral to speech therapy. * At home exercises also encouraged discussed with patient today. * At this stage patient may follow-up as needed but patient made aware that should he experience any discomfort or issues, he may call in for appointment as we would love to see him and he states understanding and compliance. * Follow-up as needed Medications Home Meds Active Scripts [glucose] No Conflict Check Prov:SANDY ELI MD 02/13/17 Blood-Glucose Meter (Blood Glucose Monitor) 1 Each Each, 1 EACH MC, #1 Prov:SANDY ELI MD 02/13/17 [test] No Conflict Check Prov:SANDY ELI MD 02/13/17 Lancets (Blood Lancets) 1 Each Each, 1 EACH MC QID, #100 Prov:SANDY ELI MD 02/13/17 Insulin Lispro (Humalog) 100 Unit/1 Ml Cartridge, 10 UNIT SQ TID for 5 Days, #1 Prov:SANDY ELI MD 02/12/17 Insulin Glargine* (Lantus*) 100 Unit/Ml Soln, 30 UNIT SC DAILY for 5 Days, #1 VIAL Prov:SANDY ELI MD 02/12/17 Gemfibrozil* (Lopid*) 600 Mg Tablet, 600 MG PO BID for 5 Days, #10 TAB Prov:SADNY ELI MD 02/12/17 [place]-3 Fatty Acids (Fish Oil) 300 Mg Capsule, 300 MG PO DAILY for 5 Days, #5 CAP Prov:SANDY ELI MD 02/12/17 Omeprazole* (Omeprazole*) 40 Mg Capsule.dr, 40 MG PO DAILY for 5 Days, #5 CAP Prov:SANDY ELI MD 02/12/17 Cholecalciferol* (Vitamin D3*) 1,000 Unit Tablet, 2000 UNIT PO DAILY for 5 Days , #5 TAB Prov:SANDY ELI MD 02/12/17 Metformin Hcl* (Metformin Hcl*) 1,000 Mg Tablet, 1000 MG PO BID for 5 Days, #10 TAB Prov:SANDY ELI MD 02/12/17 Discontinued Scripts Lisinopril* (Lisinopril*) 40 Mg Tablet, 40 MG PO DAILY for 5 Days, #5 TAB Prov:SANDY ELI MD 02/12/17 Hydrochlorothiazide* (Hydrochlorothiazide*) 25 Mg Tab, 25 MG PO DAILY for 5 Days , #5 TAB Prov:SANDY ELI MD 02/12/17 Insulin Isophan/Regular (Humulin 70/30) 100 Units/Ml Susp, 20 UNIT SC HS for 5 Days, #1 EA Prov:SANDY ELI MD 02/12/17 JULIET AMOS PA-C Feb 19, 2017 15:41
--- NOTE | 2017-02-19 15:49 | PN ---
Date/Time of Note Date/Time of Note DATE: 02/19/17 TIME: 15:41 Outpatient Progress Note Chief Complaint Left hip pain HPI 52-year-old male presents today regarding left hip pain. Patient suffered a fall on 02/17/2017. Patient states that he was able to pick himself back up and continue ambulating. Denies any head trauma. Denies any loss of consciousness or any focal neurological deficits. Continues with local tenderness along the left greater trochanteric region. In regards to the right hip patient has been doing well status post surgery on 06/05/2016. Presents today for evaluation regarding left hip pain status post fall 2 days ago. No chest pain/tightness. No difficulty breathing. Review of Systems Const: No Fever, no chills, no Fatigue, normal appetite, no diaphoresis. Resp: No SOB, no wheezing, no chest pain. CV: No chest pain, no palpitaions, no OTTO. Physical Exam Blood pressure is 131/60, temperature is 99.1, pulse is 60, respiratory rate is 12, height is 5 foot 7 inches, weight is 130 pounds General Appearance: well-developed, well-nourished, in no acute distress. Left hip: Gait with single-point cane today. Localized swelling with mild bruising along the left greater trochanteric region. No tenderness to palpation throughout the rest of the left lower extremity. No calf pain. Normal sensory examination to light touch. Right hip: Able to be seated comfortably with hip at 90. Local mild tenderness over the greater trochanteric region. Imaging: X-ray of the right hip performed on 02/19/2017 showing all components appearing well aligned, attached and integrated to the bone. No signs of any lucency between metal and bone. X-ray of the left hip performed on 02/19/2017 is negative for any acute fracture. Comparison with previous left hip x-rays had today as well with Dr. Oden showing no changes. Likely fall resulted in superficial soft tissue injury. There is osteophytosis more proximal along the lateral ileal cortex Allergies Coded Allergies: No Known Allergy (Verified , 02/12/17) Assessment/Plan * No evidence of acute fracture * Patient was evaluated by Dr. Oden as well. Dr. Oden recommends cortisone injection for greater trochanteric bursitis. Area was cleaned with Betadine prior to procedure. Using 25-gauge needle 2 cc of Kenalog 40 mg with 3 cc of lidocaine 2% without epinephrine. Patient tolerated procedure well. * Ice modalities recommended. * Continue with primary care provider who has been providing her with anti- inflammatories which is helping. * Patient may also continue pain management physician as well who is been providing [place], Lyrica, Xanax and Cymbalta * Follow-up as needed Medications Home Meds Active Scripts [glucose] No Conflict Check Prov:SANDY ELI MD 02/13/17 Blood-Glucose Meter (Blood Glucose Monitor) 1 Each Each, 1 EACH MC, #1 Prov:SANDY ELI MD 02/13/17 [test] No Conflict Check Prov:SANDY ELI MD 02/13/17 Lancets (Blood Lancets) 1 Each Each, 1 EACH MC QID, #100 Prov:SANDY ELI MD 02/13/17 Insulin Lispro (Humalog) 100 Unit/1 Ml Cartridge, 10 UNIT SQ TID for 5 Days, #1 Prov:SANDY ELI MD 02/12/17 Insulin Glargine* (Lantus*) 100 Unit/Ml Soln, 30 UNIT SC DAILY for 5 Days, #1 VIAL Prov:SANDY ELI MD 02/12/17 Gemfibrozil* (Lopid*) 600 Mg Tablet, 600 MG PO BID for 5 Days, #10 TAB Prov:SANDY ELI MD 02/12/17 [place]-3 Fatty Acids (Fish Oil) 300 Mg Capsule, 300 MG PO DAILY for 5 Days, #5 CAP Prov:SANDY ELI MD 02/12/17 Omeprazole* (Omeprazole*) 40 Mg Capsule.dr, 40 MG PO DAILY for 5 Days, #5 CAP Prov:SANDY ELI MD 02/12/17 Cholecalciferol* (Vitamin D3*) 1,000 Unit Tablet, 2000 UNIT PO DAILY for 5 Days , #5 TAB Prov:SANDY ELI MD 02/12/17 Metformin Hcl* (Metformin Hcl*) 1,000 Mg Tablet, 1000 MG PO BID for 5 Days, #10 TAB Prov:SANDY ELI MD 02/12/17 Discontinued Scripts Lisinopril* (Lisinopril*) 40 Mg Tablet, 40 MG PO DAILY for 5 Days, #5 TAB Prov:SANDY ELI MD 02/12/17 Hydrochlorothiazide* (Hydrochlorothiazide*) 25 Mg Tab, 25 MG PO DAILY for 5 Days , #5 TAB Prov:SANDY ELI MD 02/12/17 Insulin Isophan/Regular (Humulin 70/30) 100 Units/Ml Susp, 20 UNIT SC HS for 5 Days, #1 EA Prov:SANDY ELI MD 02/12/17 JULIET AMOS PA-C Feb 19, 2017 15:49
== END | disposition home or self-care (01) ==
LOC: HKI 14:59
DX: Z47.1 Aftercare following joint replacement surgery (principal); Z96.651 Presence of right artificial knee joint; E11.9 Type 2 diabetes mellitus without complications; Z79.84 Long term (current) use of oral hypoglycemic drugs; Z79.4 Long term (current) use of insulin

== ENCOUNTER → 2017-03-24 | Outpatient (CLI) | payer OTHER ==
[~2017-03-24] MED LIST changes: +HYD25 PO; +LISI40TA9 PO; +NOVO7030 SC
--- NOTE | 2017-03-24 17:10 | RADRPT ---
PROCEDURE: Right knee radiographs. CLINICAL INDICATION: Right knee pain. TECHNIQUE: Three views. Weight bearing. Frontal, lateral, and patellar view. COMPARISON: No prior studies are available for comparison. FINDINGS: There is no fracture or dislocation. There is a small joint effusion. There are degenerative changes with osteophytes arising from all 3 joint compartment margins. There is medial joint compartment narrowing. There is no lytic or blastic lesion. There is no radiopaque foreign body. IMPRESSION: 1. Small joint effusion. 2. Moderate degenerative change of the right knee. RPTAT: QQ .Jeff Joiner MD, MD Date Time Electronically viewed and signed by .Jeff Joiner MD, MD on 03/24/2017 17:09 .R/
--- NOTE | 2017-04-14 08:24 | HKNOTE ---
DATE OF SERVICE: 03/24/2017 MAIN COMPLAINT: Pain in the right knee history. HISTORY OF MAIN COMPLAINT: The patient is a 52-year-old male who complains of pain in the right knee for a knee arthroscopy. He states that his knee was much improved after the operative arthroscopy. He has to "keep the children from running across the street in front of the car." DICTATION ENDS HERE Dictated By: Lonny Oden MD /[email or web address]/josh /Document#: [id number]
== END | disposition home or self-care (01) ==
LOC: HKI 13:26
DX: M25.561 Pain in right knee (principal); Z96.651 Presence of right artificial knee joint
CPT/HCPCS: 20610; 73562; Z7610

== ENCOUNTER → 2017-08-11 | Outpatient (CLI) | payer OTHER ==
[~2017-08-11] MED LIST changes: -HYD25 PO; -LISI40TA9 PO; -NOVO7030 SC
--- NOTE | 2017-08-11 21:56 | HKNOTE ---
DATE OF SERVICE: 08/11/2017 CHIEF COMPLAINT: Right knee pain. HISTORY OF PRESENT ILLNESS: This is a 52-year-old male with history of diabetes mellitus, who had a previous right knee arthroscopy with partial medial and lateral meniscectomies performed by Dr. Her angelika Oden on 12/31/2016. He states that he is having pain in his right knee. He is complaini ng of stiffness. He states that he did not perform physical therapy after his surgery. He has been taking Lowman for pain control. He is being prescribed Lowman from his primary care physician. He i s using a walker for ambulation. He denies any groin or back pain. He has no other complaints. GAIT: Nonantalgic gait, reciprocal gait pattern. RIGHT KNEE EXAMINATION: Neutral alignment. Nontender over the medial and lateral joint line. Prev ious healed portal sites. Negative Carolyne, negative anterior drawer, negative posterior drawer, ne gative Asha's, 0 to 120 degrees range of motion, stable to varus and valgus stress. IMAGING: X-rays right knee: X-rays of the right knee demonstrate medial joint space narrowing with [id number] arthritic changes. There is subchondral sclerosis. No fractures or dislocations. IMPRESSION: This is a 52-year-old male who underwent right knee partial medial and lateral meniscec tomies in December 2016 with osteoarthritis. PLAN: I discussed treatment options with Mr. Mota. I discussed weight loss. I also discussed with him physical therapy. I offered to request authorization for physical therapy, but Mr. Delmy munoz refused any further physical therapy. Mr. Mota became belligerent during today's evaluation. He walked out of the examination room and declined any further treatment. I advised him that I gladys l be glad to offer him physical therapy should he choose to continue care in this practice. Dictated By: JEANNIE MARQUEZ/WILY Conf#: [id number] DID#: [id number]
--- NOTE | 2017-08-12 11:33 | RADRPT ---
PROCEDURE: Right knee series CLINICAL INDICATION: Pain TECHNIQUE: AP weightbearing, PA semi flexed weightbearing, lateral and sunrise views were obtained of the right knee. COMPARISON: Right knee series 03/24/2017. FINDINGS: There is moderate degenerate joint disease of the right knee worse involving the medial compartment. No acute fractures or dislocations. The bony mineralization is normal. No focal bony blastic or lyt ic lesions. No evidence of right knee joint effusion. IMPRESSION: 1. No significant change. 2. Moderate degenerate joint disease right knee without evidence acute fracture dislocation or join t effusion. RPTAT:AAJJ Physician Georgette Date Time Electronically viewed and signed by Archie Collins Physician on 08/12/2017 11:33 BM/
== END | disposition home or self-care (01) ==
LOC: HKI 14:24
PROVIDERS: ATTEND Orthopaedic Surgery Adult Reconstructive Orthopaedic Surgery
DX: M17.11 Unilateral primary osteoarthritis, right knee (principal)
CPT/HCPCS: 73564; Z7500; G0463